=== PATIENT | female | born 1970 | race Caucasian/White ===

== ENCOUNTER 2019-01-06 07:08 | Day surgery (SDC) | payer BC, OTHER ==
[~2019-01-06 07:08] MED LIST: Lactated Ringers 1,000 ML IV SCH; Lidocaine 1%/Sod Bicarbonate in NS 8.4% 1 ML Syringe IDERM PRN; Sodium Chloride 0.9% 10 ML Syringe FLUSH PRN
[2019-01-06] MEDS ORDERED: ceFAZolin 1 GM Vial ONE (07:21)
[2019-01-06] MEDS ORDERED: Lidocaine 1% 4 ML ONE (07:21)
[2019-01-06] MEDS ORDERED: Propofol 200 MG/20 ML SDV ONE (07:21)
[2019-01-06] MEDS ORDERED: Midazolam 1 MG/ML 2 ML SDV ONE (07:21)
[2019-01-06] MEDS ORDERED: fentaNYL 250 MCG/5 ML SDV ONE (07:21)
[2019-01-06] MEDS ORDERED: Ondansetron 4 MG/2 ML SDV ONE (07:21)
[2019-01-06] MEDS ORDERED: Lactated Ringers 1,000 ML ONE (07:21)
[2019-01-06] MEDS ORDERED: Ketorolac 15 MG/ML SDV ONE (07:22)
[2019-01-06] MEDS ORDERED: Dexamethasone 4 MG/ML 5 ML MDV ONE (07:22)
[2019-01-06] MEDS ORDERED: Scopolamine 1.5 MG Transdermal Patch TRDERM SCH (07:45)
--- NOTE | 2019-01-06 07:54 | PCM.PREANE ---
Preanesthetic Assessment - Anesthesia/Transfusion/Family Hx Anesthesia History: Prior Anesthesia Without Reaction Family History of Anesthesia Reaction: No - Review of Systems General: No Symptoms Pulmonary: No Symptoms Cardiovascular: No Symptoms Gastrointestinal: No Symptoms Neurological: No Symptoms Other: Reports: Thyroid Problems, Depression, Anxiety - Physical Assessment NPO Status Date: 01/05/19 NPO Status Time: 21:00 Vital Signs: 118/79 77 100% 16 98.2F Weight: 64 kg ASA Class: 1 Mental Status: Alert & Oriented x3 Airway Class: Mallampati = 2 Dentition: Reports: Normal Dentition Thyro-Mental Finger Breadths: 3 Mouth Opening Finger Breadths: 3 ROM/Head Extension: Full Lungs: Clear to Auscultation, Normal Respiratory Effort - Lab Values: Laboratory Last Values WBC 4.94 K/mm3 (3.98-10.04) 12/29/18 09:13 RBC 4.59 M/mm3 (3.98-5.22) 12/29/18 09:13 Hgb 13.8 gm/L (11.2-15.7) 12/29/18 09:13 Hct 42.1 % (34.1-44.9) 12/29/18 09:13 MCV 91.7 fl (79.4-94.8) 12/29/18 09:13 MCH 30.1 pg (25.6-32.2) 12/29/18 09:13 MCHC 32.8 g/dl (32.2-35.5) 12/29/18 09:13 RDW Std Deviation 46.6 fL (36.4-46.3) H 12/29/18 09:13 Plt Count 194 K/mm3 (182-369) 12/29/18 09:13 MPV 10.5 fl (9.4-12.3) 12/29/18 09:13 Neut % (Auto) 57.5 % (34.0-71.1) 12/29/18 09:13 Lymph % (Auto) 27.7 % (19.3-51.7) 12/29/18 09:13 Fisher % (Auto) 9.7 % (4.7-12.5) 12/29/18 09:13 Eos % (Auto) 4.3 (0.7-5.8) 12/29/18 09:13 Baso % (Auto) 0.6 % (0.1-1.2) 12/29/18 09:13 Neut # (Auto) 2.84 K/mm3 (1.56-6.13) 12/29/18 09:13 Lymph # (Auto) 1.37 K/mm3 (1.18-3.74) 12/29/18 09:13 Fisher # (Auto) 0.48 K/mm3 (0.24-0.36) H 12/29/18 09:13 Eos # (Auto) 0.21 K/mm3 (0.04-0.36) 12/29/18 09:13 Baso # (Auto) 0.03 K/mm3 (0.01-0.08) 12/29/18 09:13 Urine Color Yellow (Yellow) 12/29/18 09:13 Urine Appearance Clear (Clear) 12/29/18 09:13 Urine pH 7.0 (5.0-8.0) 12/29/18 09:13 Ur Specific [place] 1.015 (1.005-1.030) 12/29/18 09:13 Urine Protein Negative (Negative) 12/29/18 09:13 Urine Glucose (UA) Negative (Negative) 12/29/18 09:13 Urine Ketones Negative (Negative) 12/29/18 09:13 Urine Occult Blood Negative (Negative) 12/29/18 09:13 Urine Nitrite Negative (Negative) 12/29/18 09:13 Urine Bilirubin Negative (Negative) 12/29/18 09:13 Urine Urobilinogen 0.2 (0.2-1.0) 12/29/18 09:13 Ur Leukocyte Esterase Negative (Negative) 12/29/18 09:13 - Allergies Allergies/Adverse Reactions: Allergies Allergy/AdvReac Type Severity Reaction Status Date / Time cashew nut Allergy Cannot Verified 01/05/19 11:01 Remember egg Allergy Cannot Verified 01/05/19 11:01 Remember oatmeal Allergy Cannot Uncoded 01/05/19 11:01 Remember - Anesthesia Plan Pre-Op Medication Ordered: Other (Scopalamine patch history of motion sickness) - Acknowledgements Anesthesia Type Planned: General Anesthesia Pt an Appropriate Candidate for the Planned Anesthesia: Yes Alternatives and Risks of Anesthesia Discussed w Pt/Guardian: Yes Pt/Guardian Understands and Agrees with Anesthesia Plan: Yes PreAnesthesia Questionnaire HEENT History: Reports: None Cardiovascular History: Reports: None Respiratory History: Reports: None Gastrointestinal History: Reports: None 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: , 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 , Other (See Below) Other OB/BYN History: dysfunctional uterine bleeding, wilbur-menopausal, menorrhagia, dysmenorrhea Musculoskeletal History: Reports: None Neurological History: Reports: None Psychiatric History: Reports: Anxiety, Depression Endocrine/Metabolic History: Reports: Hypothyroidism Hematologic History: Reports: None Immunologic History: Reports: None Oncologic (Cancer) History: Reports: None Dermatologic History: Reports: None - Past Surgical History Head Surgeries/Procedures: Reports: None HEENT Surgical History: Reports: None Respiratory Surgical History: Reports: None Female Surgical History: Reports: Section Endocrine Surgical History: Reports: None Neurological Surgical History: Reports: None Musculoskeletal Surgical History: Reports: None Oncologic Surgical History: Reports: None Dermatological Surgical History: Reports: None - SUBSTANCE USE Smoking Status *Q: Never Smoker Recreational Drug Use History: No - HOME MEDS Home Medications: Home Meds DULoxetine HCl [Duloxetine HCl] 20 mg PO BID 01/05/19 [History] - CURRENT (IN HOUSE) MEDS Current Meds: Current Medications Lactated Ringer's (Ringers, Lactated) 1,000 mls @ 125 mls/hr IV ASDIRECTED FRANCO Stop: 01/06/19 23:00 Lidocaine/Sodium Bicarbonate (Buffered Lidocaine 1% In Ns 8.4%) 0.25 ml IDERM ONETIME PRN PRN Reason: Prior to IV Start Stop: 01/06/19 18:00 Scopolamine (Transderm-Scop) 1.5 mg TRDERM ONETIME FRANCO Stop: 01/06/19 12:00 Sodium Chloride (Saline Flush) 10 ml FLUSH ASDIRECTED PRN PRN Reason: Keep Vein Open Stop: 01/06/19 18:00 Discontinued Medications Cefazolin Sodium (Ancef) Confirm Administered Dose 2 gm .ROUTE .STK-MED ONE Stop: 01/06/19 07:22 Dexamethasone (Dexamethasone) Confirm Administered Dose 20 mg .ROUTE .STK-MED ONE Stop: 01/06/19 07:23 Fentanyl (Sublimaze) Confirm Administered Dose 250 mcg .ROUTE .STK-MED ONE Stop: 01/06/19 07:22 Lidocaine HCl (Xylocaine-Mpf 1%) Confirm Administered Dose 4 mls @ as directed .ROUTE .STK-MED ONE Stop: 01/06/19 07:22 Lactated Ringer's (Ringers, Lactated) Confirm Administered Dose 1,000 mls @ as directed .ROUTE .STK-MED ONE Stop: 01/06/19 07:22 Ketorolac Tromethamine (Toradol) Confirm Administered Dose 15 mg .ROUTE .STK- MED ONE Stop: 01/06/19 07:23 Midazolam HCl (Versed 1 Mg/Ml) Confirm Administered Dose 2 mg .ROUTE .STK-MED ONE Stop: 01/06/19 07:22 Ondansetron HCl (Zofran) Confirm Administered Dose 4 mg .ROUTE .STK-MED ONE Stop: 01/06/19 07:22 Propofol (Diprivan 20 Ml) Confirm Administered Dose 400 mg .ROUTE .STK-MED ONE Stop: 01/06/19 07:22
[2019-01-06] MEDS ORDERED: Ketamine 500 mg/10 ML MDV ONE (08:12)
[2019-01-06] MEDS ORDERED: Ondansetron 4 MG/2 ML SDV IVPUSH PRN ×2 (08:24→09:07)
[2019-01-06] MEDS ORDERED: diphenhydrAMINE 50 MG/ML SDV IVPUSH PRN (08:24)
[2019-01-06] MEDS ORDERED: fentaNYL 100 MCG/2 ML SDV IVPUSH PRN (08:24)
--- NOTE | 2019-01-06 08:57 | PCM.POSTAN ---
POST ANESTHESIA ASSESSMENT - MENTAL STATUS Mental Status: Other (Drowsy) - VITAL SIGNS Vital Signs: Last Vital Signs 0850 118/81 76 11 100% 97.9F - RESPIRATORY Respiratory Status: Respiratory Rate WNL, Airway Patent, O2 Saturation Stable, Supplemental Oxygen - CARDIOVASCULAR CV Status: Pulse Rate WNL, Blood Pressure Stable - GASTROINTESTINAL GI Status: No Symptoms - PAIN Pain Score: 0 - POST OP HYDRATION Hydration Status: Adequate & Stable
[2019-01-06] MEDS ORDERED: Acetaminophen/oxyCODONE 325-5 MG Tab PO PRN (09:07)
[2019-01-06] MEDS ORDERED: Ketorolac 30 MG/ML SDV IVPUSH SCH (09:15)
--- NOTE | 2019-01-06 09:15 | PCM.OPNOTE ---
- General Post-Op/Procedure Note Date of Surgery/Procedure: 01/06/19 Operative Procedure(s): Hysteroscopy with Dilation and Curettage, Novasure endometrial ablation Findings: Uterus was retroflexed. It sounded to 9 cm with cx length of 3 cm for uterine cavity length of 6 cm. The width of the uterus was 4.5 cm. Power used was 149 W. The length of the therapy was 1 minute 32 seconds. There were polyps found within the uterine cavity. These were removed with D&C and polyp forceps. Tubal ostia were seen bilaterally. No other abnormalities were noted. Pre Op Diagnosis: 1. Menorrhagia. 2. Irregular uterine bleeding Post-Op Diagnosis: Same Anesthesia Technique: General LMA Primary Surgeon: Faraz Limon Secondary Surgeon: Xi Bazzi Anesthesia Provider: Viviane Marte Pathology: Endometrial curettings Fluid Replacement, Intraop: 800 EBL in mLs: 10 Complications: None Condition: Good Free Text/Narrative:: Surgery duration 20 minutes Procedure: Patient was instructed as to procedure, its risks, benefits, limitations and follow-up and had signed a consent for surgery. The patient is taken the operative placed in a supine position on the operating table. She received 2 g of Ancef preoperatively for infection prophylaxis and had sequential compression stockings in place for DVT prophylaxis. Patient was given general anesthesia and an LMA was placed for ventilation. She is placed in a dorsal lithotomy position and prepped and draped in usual fashion. An exam under anesthesia was performed. Findings as described above. A weighted speculum was placed in the vagina. Cervix is visualized. It was grasped anteriorly with a single-tooth tenaculum. Uterus was then sounded to a depth of 9 cm. The cervix was dilated to allow passage of a 5 mm 12 rigid hysteroscope. This was placed without problem and normal saline was used as a distending medium. The endometrial cavity was visualized. Findings as described above. Decision was made to proceed with polypectomy. Polyp forceps was introduced and polyps were removed. After this is performed a D&C was performed. Moderate amount tissue was obtained. Minimal bleeding was encountered. Endometrial ablation was then performed. Should be noted consent was appropriately signed by the patient prior to the procedure. The cervix was dilated to allow placement of the NovaSure endometrial apparatus. Uterine cavity was 6 6 cm in length. Therapy last 1 and 32 seconds. Hysteroscope was then placed back into the endometrial cavity. Blood was flushed out and the findings were consistent with a cauterized endometrial cavity. At this point the scope was removed. The vagina was cleared of old blood , the cervix was released and the weighted speculum was removed. Patient was returned to supine position and awakened from general anesthesia. She tolerated the procedure well and operating room in good condition.
--- NOTE | 2019-01-06 13:53 | PCM48HPAN ---
Post Anesthesia Note - EVALUATION WITHIN 48HRS OF ANESTHETIC Vital Signs in Normal Range: Yes Patient Participated in Evaluation: Yes Respiratory Function Stable: Yes Airway Patent: Yes Cardiovascular Function Stable: Yes Hydration Status Stable: Yes Pain Control Satisfactory: Yes Nausea and Vomiting Control Satisfactory: Yes Mental Status Recovered: Yes Vital Signs: Last Vital Signs Temp 36.8 C 01/06/19 11:00 Pulse 66 01/06/19 11:00 Resp 15 01/06/19 11:00 BP 116/76 01/06/19 11:00 Pulse Ox 99 01/06/19 11:00
== END 2019-01-06 11:15 | disposition home or self-care (01) ==
LOC: JD.SDS 07:08
PROVIDERS: ATTEND Obstetrics & Gynecology
DX: N84.0 Polyp of corpus uteri (principal); E03.9 Hypothyroidism, unspecified; F32.9 Major depressive disorder, single episode, unspecified; F41.9 Anxiety disorder, unspecified; Z91.012 Allergy to eggs; Z91.018 Allergy to other foods; Z79.899 Other long term (current) drug therapy
CPT/HCPCS: 36415; 58563; 81003; 81025; 85025; A9270; J0690; J1100; J1885; J2001; J2250; J2405; J2704; J3010; J7120; 00952

== ENCOUNTER 2019-06-15 10:02 | Day surgery (SDC) | payer BC ==
[2019-06-15] MEDS ORDERED: Bupivacaine 0.25% 10 ML SDV ONE (10:18)
[2019-06-15] MEDS ORDERED: Midazolam 1 MG/ML 2 ML SDV ONE (10:47)
[2019-06-15] MEDS ORDERED: fentaNYL 100 MCG/2 ML SDV ONE (10:48)
[2019-06-15] MEDS ORDERED: Propofol 200 MG/20 ML SDV ONE ×2 (10:50→11:42)
[2019-06-15] MEDS ORDERED: Lidocaine 1% 6 ML ONE (10:51)
[2019-06-15] MEDS ORDERED: Bupivacaine 0.5% 10 ML SDV ONE (10:52)
--- NOTE | 2019-06-15 11:04 | PCM.PREANE ---
Preanesthetic Assessment - Anesthesia/Transfusion/Family Hx Anesthesia History: Prior Anesthesia Without Reaction - Review of Systems General: No Symptoms Pulmonary: No Symptoms Cardiovascular: No Symptoms Gastrointestinal: No Symptoms Neurological: No Symptoms Other: Reports: Thyroid Problems, Depression, Anxiety - Physical Assessment NPO Status Date: 06/14/19 NPO Status Time: 21:00 ASA Class: 1 Mental Status: Alert & Oriented x3 Airway Class: Mallampati = 1 Dentition: Reports: Normal Dentition Thyro-Mental Finger Breadths: 3 Mouth Opening Finger Breadths: 3 ROM/Head Extension: Full Lungs: Clear to Auscultation, Normal Respiratory Effort Cardiovascular: Regular Rate, Regular Rhythm - Lab Values: Laboratory Last Values MRSA (PCR) Negative 06/13/19 16:15 - Allergies Allergies/Adverse Reactions: Allergies Allergy/AdvReac Type Severity Reaction Status Date / Time cashew nut Allergy Other Verified 06/14/19 14:49 egg Allergy Other Verified 06/14/19 14:49 oatmeal Allergy Other Uncoded 06/14/19 14:49 - Acknowledgements Anesthesia Type Planned: Regional Block (ankle block preoperatively), MAC Pt an Appropriate Candidate for the Planned Anesthesia: Yes Alternatives and Risks of Anesthesia Discussed w Pt/Guardian: Yes Pt/Guardian Understands and Agrees with Anesthesia Plan: Yes PreAnesthesia Questionnaire HEENT History: Reports: None Cardiovascular History: Reports: None Respiratory History: Reports: None Gastrointestinal History: Reports: None 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 History: Reports: None 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: , 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 , 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 (See Below) Other OB/BYN History: dysfunctional uterine bleeding, wilbur-menopausal, menorrhagia, dysmenorrhea Musculoskeletal History: Reports: None Neurological History: Reports: None Psychiatric History: Reports: Anxiety, Depression Endocrine/Metabolic History: Reports: Hypothyroidism Hematologic History: Reports: None Immunologic History: Reports: None Oncologic (Cancer) History: Reports: None Dermatologic History: Reports: None - Past Surgical History Head Surgeries/Procedures: Reports: None HEENT Surgical History: Reports: None Cardiovascular Surgical History: Reports: None Respiratory Surgical History: Reports: None GI Surgical History: Reports: None Female Surgical History: Reports: Section, D&C, Endometrial Ablation Male Surgical History: Reports: None Endocrine Surgical History: Reports: None Neurological Surgical History: Reports: None Musculoskeletal Surgical History: Reports: None Oncologic Surgical History: Reports: None Dermatological Surgical History: Reports: None - SUBSTANCE USE Smoking Status *Q: Never Smoker Recreational Drug Use History: No - HOME MEDS Home Medications: Home Meds Cholecalciferol (Vitamin D3) [Vitamin D3] 10 mcg PO DAILY 06/14/19 [History] DULoxetine HCl [Duloxetine HCl] 20 mg PO DAILY 06/14/19 [History] Multivitamin,Stress Formula [Stress Formula] 1 tab PO DAILY 06/14/19 [History] Prasterone (DHEA) [Dhea] 50 mg PO DAILY 06/14/19 [History] Acetaminophen/HYDROcodone [[place] 325-5 MG] 1 - 2 tab PO Q6H PRN #40 tablet 06/15 [Rx] Aspirin 325 mg PO BID #84 tab 06/15/19 [Rx] - CURRENT (IN HOUSE) MEDS Current Meds: Current Medications Lactated Ringer's (Ringers, Lactated) 1,000 mls @ 125 mls/hr IV ASDIRECTED FRANCO Stop: 06/15/19 23:00 Lidocaine/Sodium Bicarbonate (Buffered Lidocaine 1% In Ns 8.4%) 0.25 ml IDERM ONETIME PRN PRN Reason: Prior to IV Start Stop: 06/15/19 18:00 Sodium Chloride (Saline Flush) 10 ml FLUSH ASDIRECTED PRN PRN Reason: Keep Vein Open Stop: 06/15/19 18:00 Discontinued Medications Bupivacaine HCl (Sensorcaine-Mpf 0.25%) Confirm Administered Dose 20 ml .ROUTE .STK-MED ONE Stop: 06/15/19 10:19 Bupivacaine HCl (Sensorcaine-Mpf 0.5%) Confirm Administered Dose 10 ml .ROUTE .STK-MED ONE Stop: 06/15/19 10:53 Fentanyl (Sublimaze) Confirm Administered Dose 100 mcg .ROUTE .STK-MED ONE Stop: 06/15/19 10:49 Lidocaine HCl (Xylocaine-Mpf 1%) Confirm Administered Dose 6 mls @ as directed .ROUTE .STK-MED ONE Stop: 06/15/19 10:52 Midazolam HCl (Versed 1 Mg/Ml) Confirm Administered Dose 4 mg .ROUTE .STK-MED ONE Stop: 06/15/19 10:48 Propofol (Diprivan 20 Ml) Confirm Administered Dose 400 mg .ROUTE .STK-MED ONE Stop: 06/15/19 10:51
[2019-06-15] MEDS ORDERED: ceFAZolin 1 GM Vial ONE (11:47)
--- NOTE | 2019-06-15 12:38 | PCM.PRNOTE ---
- Free Text/Narrative Note: Postoperative pain control requested by the surgeon Dx: Left Hallux valgus. Surgical Procedure : Distal 1st metatarsal osteotomy, dorsal cheilectomy , medial eminence resection, abductor hallucis tenotomy Preoperative Treatment: Lt ankle block Requested by Dr. Tyler Arechiga. Patient received explanation about an ankle block, benefits and risks discussed , consent signed. Patient in preoperative area, monitors on, oxygen 2L via nasal cannula, semi-Grace position, left fool supported by folded blankets a elevated position. Landmarks located and marked with skin marker. Time out done. Left fool cleaned with Chloraprep stick and allowed to dry. 4 mg of Midazolam given in incremental doses. 1st Injection performed behind medial malleolus at tibial nerve in fanning fashion with negative aspiration confirmed. 2nd injection between extensor hallucis longus and extensor digitorum longus tendons at deep peroneal nerve with negative aspiration confirmed. 3rd injection in the ring fashion infiltration at the dorsal surface of the foot at superficial peroneal nerve distribution. Total of 10 mls of 0.5% Bupivacaine PF with 6 mls of 1% Lidocaine PF used. Patient has tolerated the procedure well. No signs of local anesthetic systemic toxicity noted. Procedure start: 11:13 Procedure stop: 11:22
--- NOTE | 2019-06-15 13:30 | PCM48HPAN ---
Post Anesthesia Note - EVALUATION WITHIN 48HRS OF ANESTHETIC Vital Signs in Normal Range: Yes Patient Participated in Evaluation: Yes Respiratory Function Stable: Yes Airway Patent: Yes Cardiovascular Function Stable: Yes Hydration Status Stable: Yes Pain Control Satisfactory: Yes Nausea and Vomiting Control Satisfactory: Yes Mental Status Recovered: Yes Vital Signs: Last Vital Signs Temp 98.2 F 06/15/19 13:06 Pulse 89 06/15/19 13:06 Resp 15 06/15/19 13:06 BP 114/78 06/15/19 13:06 Pulse Ox 100 06/15/19 13:06
--- NOTE | 2019-06-15 14:15 | CR ---
Left foot: Eight fluoroscopic spot views were obtained centered to the distal left 1st toe. Study obtained utilizing C-arm device. Study shows osteotomy within the 1st distal metatarsal with metatarsal shaving and screw placement affixing the osteotomy. Fluoroscopy time given as 18.9 seconds. Impression: 1. Procedural study as described above. Diagnostic code #2 This report was dictated in [place] Standard Time
--- NOTE | 2019-06-19 07:02 | PCM.OPNOTE ---
- General Post-Op/Procedure Note Date of Surgery/Procedure: 06/15/19 Operative Procedure(s): left foot distal first metatarsal chevron osteotomy for hallux valgus correction with dorsal cheilectomy, abductor hallucis tenotomy Pre Op Diagnosis: left foot hallux valgus with dorsal osteophyte Post-Op Diagnosis: Same Anesthesia Technique: MAC, Regional Block Primary Surgeon: Tyler Esparza Anesthesia Provider: Kali Flores Insights Strategist: Le Tolentino in mLs: 5 Complications: None Condition: Good
--- NOTE | 2019-06-20 14:26 | OR ---
DATE OF OPERATION: 06/15/2019 SURGEON: Tyler Esparza MD OPERATION PERFORMED: Left foot distal metatarsal Chevron osteotomy for hallux valgus correction with dorsal cheilectomy and adductor hallucis tenotomy. PREOPERATIVE DIAGNOSIS: Left foot hallux valgus with dorsal osteophyte. POSTOPERATIVE DIAGNOSIS: Left foot hallux valgus with dorsal osteophyte. ANESTHESIA: MAC with regional ankle block. ANESTHESIA PROVIDER: Kali Flores CRNA ADMISSIONS ASSISTANT: Le Tolentino PA-C ESTIMATED BLOOD LOSS: 5 mL. COMPLICATIONS: None. CONDITION: Stable. DESCRIPTION OF PROCEDURE: The patient was identified in the preoperative holding area. Proper site was marked and identified by the surgeon. The patient was taken back to operating theater where after adequate anesthesia patient's left lower extremity was sterilely prepped and draped in usual sterile fashion. OR time-out was performed. The patient received 2 g of IV Ancef. At this time, Esmarch was used as a tourniquet on the lower leg. A standard medial incision was made over the medial eminence. This was taken down, and a capsulotomy was performed for later repair to tighten the redundant capsule. The dorsal osteophyte was then identified over the distal first metatarsal, and a dorsal cheilectomy was performed at this time. During this, I utilized C-arm fluoroscopy to make sure it was adequately resected. The patient was noted to have significantly better dorsiflexion after the cheilectomy was performed. I then utilized C-arm to make sure the distal Chevron osteotomy obey after a medial eminence resection was completed and found to be adequately resected. The Chevron osteotomy was then completed and was shifted laterally until there was full correction of the hallux valgus. I did do an adductor release at this time secondary to the sesamoids being lateral. The sesamoids were then centered under the first metatarsal head again. A guide pin was then placed for 3-0 cannulated screw, partially threaded and then this was placed and found to have adequate compression with adequate correction of the hallux valgus angle. Adequate saline was then irrigated through the wound, and using 2-0 Vicryl, I was able to tighten the medial capsule for full correction of the hallux valgus under direct C-arm fluoroscopy, was found to be anatomically reduced with a concentric joint. A 3-0 Vicryl was then used subcutaneously and 4-0 nylon was used for the skin. The patient tolerated the procedure well, sent to PACU in stable condition, in a sterile soft dressing and a posterior slab splint. BARAK /[id number]
== END 2019-06-15 14:16 | disposition home or self-care (01) ==
LOC: JD.SDS 10:02
PROVIDERS: ATTEND Orthopaedic Surgery
DX: M20.12 Hallux valgus (acquired), left foot (principal); M25.775 Osteophyte, left foot; G89.18 Other acute postprocedural pain; F41.9 Anxiety disorder, unspecified; F32.9 Major depressive disorder, single episode, unspecified; E02 Subclinical iodine-deficiency hypothyroidism; Z91.018 Allergy to other foods; Z91.012 Allergy to eggs; Z79.82 Long term (current) use of aspirin; Z79.899 Other long term (current) drug therapy
CPT/HCPCS: 28296; 64450; 76000; 87641; C1713; J0690; J2001; J2250; J2704; J3010; J3490; J7120; 01480

== ENCOUNTER 2019-09-13 07:26 | Day surgery (SDC) | payer BC, OTHER ==
[2019-09-13] MEDS ORDERED: Propofol 200 MG/20 ML SDV ONE ×2 (07:45→07:46)
[2019-09-13] MEDS ORDERED: Lidocaine 1% 0 ML ONE (07:45)
[2019-09-13] MEDS ORDERED: Midazolam 1 MG/ML 2 ML SDV ONE ×2 (07:46→08:36)
[2019-09-13] MEDS ORDERED: fentaNYL 100 MCG/2 ML SDV ONE (07:46)
[2019-09-13] MEDS ORDERED: ceFAZolin 1 GM Vial ONE (07:47)
--- NOTE | 2019-09-13 08:18 | PCM.PREANE ---
Preanesthetic Assessment - Procedure Proposed Procedure: right foot hallux valgus - Anesthesia/Transfusion/Family Hx Anesthesia History: Prior Anesthesia Without Reaction Family History of Anesthesia Reaction: No Transfusion History: No Prior Transfusion(s) - Review of Systems General: No Symptoms Pulmonary: No Symptoms Cardiovascular: No Symptoms Gastrointestinal: No Symptoms Neurological: No Symptoms Other: Reports: Depression, Anxiety - Physical Assessment NPO Status Date: 09/12/19 NPO Status Time: 20:30 Vital Signs: 115/76 74 97% 16 98 Height: 5 ft 6 in Weight: 67 kg ASA Class: 2 Mental Status: Alert & Oriented x3 Airway Class: Mallampati = 1 Dentition: Reports: Normal Dentition Thyro-Mental Finger Breadths: 3 Mouth Opening Finger Breadths: 3 ROM/Head Extension: Full Lungs: Clear to Auscultation, Normal Respiratory Effort Cardiovascular: Regular Rate, Regular Rhythm, No Murmurs - Lab Values: Laboratory Last Values SARS Virus RNA (PCR) Negative (NEGATIVE) 09/12/19 09:55 MRSA (PCR) Negative 09/05/19 10:40 - Allergies Allergies/Adverse Reactions: Allergies Allergy/AdvReac Type Severity Reaction Status Date / Time cashew nut Allergy Other Verified 09/12/19 14:47 egg Allergy Other Verified 09/12/19 14:47 oatmeal Allergy Other Uncoded 09/12/19 14:47 - Blood Blood Available: No - Acknowledgements Anesthesia Type Planned: MAC Pt an Appropriate Candidate for the Planned Anesthesia: Yes Alternatives and Risks of Anesthesia Discussed w Pt/Guardian: Yes Pt/Guardian Understands and Agrees with Anesthesia Plan: Yes PreAnesthesia Questionnaire HEENT History: Reports: None Cardiovascular History: Reports: None Respiratory History: Reports: None Gastrointestinal History: Reports: None 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 History: Reports: None SOLE CEMENTER History: Reports: , Spontaneous , Other (See Below) Other OB/BYN History: dysfunctional uterine bleeding, wilbur-menopausal, menorrhagia, dysmenorrhea Musculoskeletal History: Reports: None Neurological History: Reports: None Psychiatric History: Reports: Anxiety, Depression Endocrine/Metabolic History: Reports: Hypothyroidism Hematologic History: Reports: None Immunologic History: Reports: None Oncologic (Cancer) History: Reports: None Dermatologic History: Reports: None - Past Surgical History Head Surgeries/Procedures: Reports: None HEENT Surgical History: Reports: None Cardiovascular Surgical History: Reports: None Respiratory Surgical History: Reports: None GI Surgical History: Reports: None Female Surgical History: Reports: Section, D&C, Endometrial Ablation Male Surgical History: Reports: None Endocrine Surgical History: Reports: None Neurological Surgical History: Reports: None Musculoskeletal Surgical History: Reports: Other (See Below) Other Musculoskeletal Surgeries/Procedures:: right hallux valgus correction Oncologic Surgical History: Reports: None Dermatological Surgical History: Reports: None - SUBSTANCE USE Smoking Status *Q: Never Smoker Tobacco Use Within Last Twelve Months: No Second Hand Smoke Exposure: No Days Per Week of Alcohol Use: 1 (rare) Recreational Drug Use History: No - HOME MEDS Home Medications: Home Meds Cholecalciferol (Vitamin D3) [Vitamin D3] 10 mcg PO DAILY 06/14/19 [History] DULoxetine HCl [Duloxetine HCl] 20 mg PO DAILY 06/14/19 [History] Prasterone (DHEA) [Dhea] 50 mg PO DAILY 06/14/19 [History] - CURRENT (IN HOUSE) MEDS Current Meds: Current Medications Lactated Ringer's (Ringers, Lactated) 1,000 mls @ 125 mls/hr IV ASDIRECTED FRANCO Lidocaine/Sodium Bicarbonate (Buffered Lidocaine 1% In Ns 8.4%) 0.25 ml IDERM ONETIME PRN PRN Reason: Prior to IV Start Sodium Chloride (Saline Flush) 10 ml FLUSH ASDIRECTED PRN PRN Reason: Keep Vein Open Discontinued Medications Bupivacaine HCl (Sensorcaine-Mpf 0.25%) Confirm Administered Dose 20 ml .ROUTE .STK-MED ONE Stop: 09/13/19 07:53 Cefazolin Sodium (Ancef) Confirm Administered Dose 2 gm .ROUTE .STK-MED ONE Stop: 09/13/19 07:48 Fentanyl (Sublimaze) Confirm Administered Dose 100 mcg .ROUTE .STK-MED ONE Stop: 09/13/19 07:47 Lidocaine HCl (Xylocaine-Mpf 1%) Confirm Administered Dose 2 mls @ as directed .ROUTE .STK-MED ONE Stop: 09/13/19 07:46 Lidocaine HCl (Xylocaine-Mpf 1%) Confirm Administered Dose 30 ml .ROUTE .STK- MED ONE Stop: 09/13/19 07:53 Midazolam HCl (Versed 1 Mg/Ml) Confirm Administered Dose 2 mg .ROUTE .STK-MED ONE Stop: 09/13/19 07:47 Propofol (Diprivan 20 Ml) Confirm Administered Dose 200 mg .ROUTE .STK-MED ONE Stop: 09/13/19 07:46 Propofol (Diprivan 20 Ml) Confirm Administered Dose 400 mg .ROUTE .STK-MED ONE Stop: 09/13/19 07:47
[2019-09-13] MEDS ORDERED: Lidocaine 1% 4 ML ONE (08:35)
[2019-09-13] MEDS: Lidocaine 1% 30 ML SDV ONE ×2 (08:50→09:13)
[2019-09-13] MEDS: Bupivacaine 0.25% 10 ML SDV ONE ×2 (08:50→09:13)
[2019-09-13] MEDS ORDERED: Bupivacaine 0.25% 10 ML SDV ONE (09:05)
[2019-09-13] MEDS ORDERED: Ketorolac 30 MG/ML SDV ONE (09:35)
--- NOTE | 2019-09-13 09:59 | PCM48HPAN ---
Post Anesthesia Note - EVALUATION WITHIN 48HRS OF ANESTHETIC Vital Signs in Normal Range: Yes Patient Participated in Evaluation: Yes Respiratory Function Stable: Yes Airway Patent: Yes Cardiovascular Function Stable: Yes Hydration Status Stable: Yes Pain Control Satisfactory: Yes Nausea and Vomiting Control Satisfactory: Yes Mental Status Recovered: Yes Vital Signs: Last Vital Signs Temp 98.0 F 09/13/19 07:25 Pulse 74 09/13/19 07:25 Resp 16 09/13/19 07:25 BP 115/76 09/13/19 07:25 Pulse Ox 97 09/13/19 07:25 101/72 16 92 99% 98.4
[2019-09-13] MEDS ORDERED: Ondansetron 4 MG/2 ML SDV IVPUSH PRN (10:03)
[2019-09-13] MEDS ORDERED: fentaNYL 100 MCG/2 ML SDV IVPUSH PRN (10:03)
--- NOTE | 2019-09-13 10:05 | CR ---
Right 1st toe: Multiple fluoroscopic spot views were obtained centered to the right toe. Study obtained utilizing C-arm device. Study shows osteotomy and pinning of the distal 1st metatarsal. Fluoroscopy time is given as 8.0 seconds. Impression: 1. Procedural study as noted above. Diagnostic code #2 This report was dictated in MDT
--- NOTE | 2019-09-19 08:47 | PCM.OPNOTE ---
- General Post-Op/Procedure Note Date of Surgery/Procedure: 09/13/19 Operative Procedure(s): right first MTP hallux valgus correction with dorsal cheilectomy, distal chevron osteotomy and modified monge Pre Op Diagnosis: right first MTP hallux valgus with dorsal osteophyte Post-Op Diagnosis: Same Anesthesia Technique: MAC, Regional Block Primary Surgeon: Tyler Esparza Anesthesia Provider: Pj Ocampo Ultra Sound Technician: Le Tolentino in mLs: 5 Complications: None Condition: Good
--- NOTE | 2019-09-19 09:32 | OR ---
DATE OF OPERATION: 09/13/2019 SURGEON: Tyler Esparza MD OPERATION PERFORMED: Right first metatarsophalangeal hallux valgus correction with dorsal cheilectomy, distal Chevron osteotomy, and modified [place]. PREOPERATIVE DIAGNOSIS: Right first metatarsophalangeal hallux valgus with dorsal osteophyte. POSTOPERATIVE DIAGNOSIS: Right first metatarsophalangeal hallux valgus with dorsal osteophyte. ANESTHESIA: Regional ankle block with MAC. ANESTHESIA PROVIDER: Pj Ocampo CRNA MATERIAL DAMAGE APPRAISER: Le Tolentino PA-C ESTIMATED BLOOD LOSS: Less than 5 mL. COMPLICATIONS: None. CONDITION: Stable. DESCRIPTION OF PROCEDURE: The patient was identified in the preop holding area. Proper site was marked and identified by the surgeon. The patient was taken back to the operating theater where after adequate anesthesia, the patient's right lower extremity had a nonsterile tourniquet applied and it was sterilely prepped and draped in the usual sterile fashion. OR time-out was performed. The patient received 2 g of IV Ancef. Right lower extremity was exsanguinated and tourniquet was insufflated to 225 mmHg. A standard medial incision was made over the first MTP joint, this was taken down the capsule. Capsulotomy was then performed for later capsular reefing. The first MTP joint was identified and a dorsal osteophyte was resected for dorsal cheilectomy. At this time, a medial eminence resection was done in line with the first MTP joint and the first ray. It was found to be an adequate resection. Attention was turned to releasing the lateral structures. The adductor hallucis tendon was released as well as lateral capsulotomy was performed. Attention was then turned to the distal Chevron osteotomy. A Chevron osteotomy was done to the distal first metatarsal joint and then it was shifted laterally. This had good correction of the sesamoid, previous sesamoid subluxation. A guide pin was then placed for a 3-0 cannulated [place] screw. A drill was then utilized after it was found to be in adequate position utilizing C-arm fluoroscopy with good correction on C-arm fluoroscopy on both AP and lateral views. The screw was then placed and found to have good compression and fixation across the osteotomy site. A small amount of bone was resected that was overhanging on the osteotomy site. At this time, a medial reefing of the capsule was done in [id number] style using 0 Vicryl. Adequate saline was irrigated through the wound before this. 2-0 Vicryl was used subcutaneously and nylon was used for closure of the skin. The patient was placed in a sterile soft dressing and a posterior slab splint and sent to the PACU in stable condition. MMODAL /[id number]
== END 2019-09-13 11:25 | disposition home or self-care (01) ==
LOC: JD.SDS 07:26
PROVIDERS: ATTEND Orthopaedic Surgery
DX: M20.11 Hallux valgus (acquired), right foot (principal); M25.774 Osteophyte, right foot; F41.9 Anxiety disorder, unspecified; F32.9 Major depressive disorder, single episode, unspecified; E03.9 Hypothyroidism, unspecified; Z91.012 Allergy to eggs; Z91.018 Allergy to other foods; Z79.899 Other long term (current) drug therapy; Z11.59 Encounter for screening for other viral diseases
CPT/HCPCS: 28299; 76000; 87635; 87641; C1713; J0690; J1885; J2001; J2250; J2704; J3010; J3490; J7120; 01480; U0002